=== PATIENT | female | born 1970 | race Two or more races ===

== ENCOUNTER 2024-01-18 08:22 | Inpatient (IN) | payer MEDICAID, SELFPAY ==
--- NOTE | 2024-01-17 10:20 | EKG_ITS ---
[facility] Test Date: 2024-01-17 Pat Name: YUMIKO LOCKWOOD Department: Room: - Gender: Female Analysis Analyst: KARLEE : 1970 Requested By: Porter Gr Order Number: [id number] Reading MD: Porter Gr Measurements Intervals Andrews Rate: 42 P: 38 MS: 134 QRS: 43 QRSD: 86 T: 24 QT: 446 QTc: 377 Interpretive Statements SINUS BRADYCARDIA No previous ECG available for comparison /store/S0/[id number]
[2024-01-17 10:27] VITALS: BMI 38.0
[2024-01-17 11:19] LABS: Basophils % (Auto) 1 % (0-2.5); Eosinophils # (Auto) 0.1 Thou/mm3 (0.0-0.5); Eosinophils % (Auto) 1 % (0-10); Hematocrit 39.8 % (36.0-46.0); Hemoglobin 13.6 g/dL (12.0-16.0); Immature Granulocytes % (Auto) 0 % (0-0); Immature Granulocytes Auto 0.02 Thou/mm3 (0.00-0.00); Lymphocytes # (Auto) 2.1 Thou/mm3 (1.0-4.8); Lymphocytes % (Auto) 38 % (10-50); Mean Corpuscular HGB Conc 34.2 g/dl (31.0-37.0); Mean Corpuscular Hemoglobin 30.4 pg (25.0-35.0); Mean Corpuscular Volume 89 fL (80-100); Monocytes # (Auto) 0.4 Thou/mm3 (0.0-0.8); Monocytes % (Auto) 7 % (0-12); Neutrophils % (Auto) 54 % (37-80); Nucleated Red Blood Cell % 0 /100 WBC (0); Platelet Count 141 Thou/mm3 (140-440); RDW Standard Deviation 42.2 fL (36.4-46.3); Red Blood Count 4.47 Miln/mm3 (4.00-5.20); White Blood Count 5.6 Thou/mm3 (3.6-11.0)
[2024-01-17 11:36] LABS: Partial Thromboplastin Time 25.3 Seconds (22.0-36.0); Prothrombin Time 11.1 Seconds (9.0-12.2)
[2024-01-17 11:37] LABS: Alanine Aminotransferase 43 U/L (10-49); Albumin, Serum 4.7 gm/dL (3.5-5.0); Albumin/Globulin Ratio 1.5 (1.2-2.2); Alkaline Phosphatase 93 U/L (46-116); Anion Gap 7 (7-16); Aspartate Amino Transferase 30 U/L (0-34); BUN/Creatinine Ratio 21 Ratio (12-20); Bilirubin,Total 0.6 mg/dL (0.3-1.2); Blood Urea Nitrogen 15 mg/dL (9-23); Calcium 9.8 mg/dL (8.3-10.6); Calcium (Corrected) 9.8 mg/dL (8.5-10.1); Carbon Dioxide 27.4 mMol/L (20.0-31.0); Chloride 107 mMol/L (98-107); Creatinine (Component) 0.7 mg/dL (0.6-1.3); Estimated Creatinine Clearance 108.3 mL/min (>60); Globulin 3.1 gm/dL (2.3-3.5); Glucose 102 mg/dL (74-106); Osmolality,Calculated 282 (275-295); Potassium 4.1 mMol/L (3.4-5.1); Sodium 141 mMol/L (136-145); Total Protein 7.8 gm/dL (5.7-8.2); eGFR > 60 See Note
[2024-01-17 11:41] LABS: HCG Qualitative,Urine Negative
--- NOTE | 2024-01-17 15:33 | ESHP_ITS ---
RE: YUMIKO LOCKWOOD : 1970 DATE OF ADMISSION: 01/18/2024 HISTORY OF PRESENT ILLNESS: The patient came to my office for detailed preop history and physical examination for right knee pain. The patient has got pain in the right knee joint for more than a few years, but last 1 year is extremely painful. The patient is unable to sleep at night due to pain. The patient feels weakness. The patient graded intensity of pain to be 8-9/10. Activity of daily living and quality of life are affected. The patient wants something to be done about it. PAST MEDICAL HISTORY: No history of diabetes mellitus or high blood pressure. The patient has history of thyroid problem. PAST SURGICAL HISTORY: Right knee arthroscopy in 2021 and in 2010. DRUG HISTORY: The patient is taking thyroid medication. FAMILY HISTORY AND SOCIAL HISTORY: The patient denies smoking or drinking and is not working. PHYSICAL EXAMINATION: GENERAL: Normal built lady. VITAL SIGNS: Pulse is 62 per minute and blood pressure is 126/84. NECK: Soft and supple. No masses felt. Trachea is centrally replaced. CARDIOVASCULAR SYSTEM: First and second heart sound normal. No murmur heard. RESPIRATORY SYSTEM: Bilateral vesicular breath sounds. Chest clear. ABDOMEN: Soft. No masses felt. Bowel sounds present. EXTREMITIES: Right knee examination revealed 1+ swelling and 2+ tenderness. Active range of motion 0-115 degrees of flexion. There is genu varum deformity. The patient walks with limp. DIAGNOSTIC DATA: X-ray of the right knee joint revealed significant osteoarthritic change of the right knee joint. ASSESSMENT AND PLAN: Since patient is symptomatic and her activity of daily living and quality of life are affected, therefore right total knee replacement was discussed and advised. The patient already underwent arthroscopic surgery and at that time, significant osteoarthritic changes were present. Risk with anesthesia was explained and that includes, but not limited to reaction to anesthetic agents, cardiac arrest and rarely it might be fatal. Risk with operation includes infection and if that happens, patient may need further surgical procedure. Other risks include delayed healing, wound dehiscence, etc. No guarantee is given regarding outcome of the procedure and/or relief of symptoms. Sometime rare complication happens and if that happens, that has to be taken care of. The patient was also cleared for surgical procedure by the primary care physician. Accordingly, surgery is booked for 01/18/2024. Appropriate lab work is done. Possibility of blood transfusions was discussed. Risk with blood transfusions was discussed in detail. The patient stated that she take blood when it is absolutely necessary. I agree with that. DT: 12:21:10 TT: 15:32:00 Ref: [id number] - TID: [id number]
--- NOTE | 2024-01-17 16:11 | SUR.PREOP ---
EKG reviewed with Dr Morales.
[2024-01-18] VITALS (14 sets, daily range): BP systolic 120–160; BP diastolic 52–93; PULSE 43–79; RESP 14–18; TEMP 36.1–36.7; O2SAT 97–100; BMI 37.6
[2024-01-18] MEDS: RINGERS LACTATED 500 ML 500 ML 20 ML IV (09:16)
--- NOTE | 2024-01-18 09:46 | CHAP ---
Patient expressed gratitude for prayer before their procedure.
--- NOTE | 2024-01-18 12:52 | SUR.PHASEI ---
1252: received pt from OR via bed. report received from CJ Norris and Dr. Morales. pt sleeping at this time. no s/s of pain or discomfort. no s/s of resp. distress or discomfort. dressing to right knee clean, dry and intact. pedal pulse positive to right foot. cap refill less than 2 seconds.
--- NOTE | 2024-01-18 13:09 | XR_ITS ---
Examination: Knee, right , 3 views Technique: Knee AP, lateral, oblique 3 views Date and time of exam: January 18, 2024 1319 hours INDICATIONS: Postop knee replacement today FINDINGS: Total right knee replacement. Satisfactory alignment No fracture Moderate osteopenia IMPRESSION: Total right knee replacement with satisfactory alignment
--- NOTE | 2024-01-18 13:09 | ESOP_ITS ---
Date of Procedure 01/18/24 Pre Op Diagnosis Severe DJD right knee joint Post Op Diagnosis Same Procedure Right total knee replacement Hema persona implant. Femur size 5 narrow Tibial baseplate size C Polyethylene size 13 mm Patella size 26 mm Findings Patient has significant osteoarthritic changes with valgus deformity. The bone on bone appearance was there. Osteophytes were present as well. The articular cartilage were absent on the lateral side to greater degree as compared to medial side. Patella has significant osteophytes as well. Procedure Description The patient was given a general anesthesia. Femoral nerve block was also given. Once satisfactory anesthesia was achieved a tourniquet was placed on right upper thigh. Intravenous antibiotics was given at the time of anesthesia. The patient was thoroughly prepped and draped. After using Esmarch the tourniquet pressure was raised to 350 mmHg. A skin incision was made 2 inches proximal to the upper pole of patella going as far down as up to the medial aspect of the tibial tuberosity. The skin was raised as a flap on the site. The bleeding vessels were electrocoagulated as and when encountered. The quadriceps tendon, medial border of the patella and the patellar tendon along the medial aspect of the tibial tuberosity was incised and reflected. The patellar tendon was reflected as much as needed to rosmery the patella. The soft tissue from the upper medial border of the tibia was reflected to correct her genu varum deformity. The knee joint was flexed. The anterior cruciate ligament, medial and lateral meniscus were excised. Next para drill hole was made to the inferior surface of the femur. Following that a swab was placed. A 6?? of abduction was already put into it. Following that a cutting block for the inferior cut of the femur was placed and nicely secured with the pins. The swat was removed. The inferior cut of the femur was made and after that the cutting block was removed. Following that a sizer was placed. A decision was made to use size [5] femur implant. 2 drill holes each in 3?? of external rotation were made. The sizer was removed. Size [5] cutting block was placed. Following that anterior, posterior, anterior chamfer and posterior chamfer cuts were made. The cutting block was removed. The knee joint was extended and a 10 mm trial plastic was removed and the intended level of the tibial cut was marked. The knee joint was flexed. With the help of double-pronged the tibia was displaced anteriorly. An extramedullary jig for the cutting block placement of the tibia was placed. The mechanical axis of the zig was parallel to the mechanical axis of the tibia. Following that the tibial cutting block was placed at the desired level and was secured nicely with the help of pins. Following that the tibial cut was made. In this case was posterior cruciate ligament was saved. The cutting block was removed. The spacer was placed and a decision was made to use size [12] polyethylene. The sizing of the tibial baseplate was done and the decision was made to use size [C] tibial baseplate. Following that size [5] trial femur implant was placed in lateralized position and size [C] tibial tibial baseplate along with size [12] plastic was placed in knee joint was flexed and extended quite a few times and tibial baseplate was allowed to sit wherever it wanted to. The markings were made for the tibial baseplate. However the knee was a little bit loose therefore size 13 mm plastic was used knee was very stable 2 drill holes were made for the inferior surface of the femur trial implant. The trial implant was removed and tibial baseplate was placed again with the help of pins. The collar was placed and superior hole was drilled. Following that a fin cut was made. The patella was reamed with [26] mm diameter reamer. [12] mm thickness was left. A collar was placed and 3 drill holes were made. All the trial implant was placed and patellar tracking was checked and found to be good. Lateral release was done at this point. The wound was irrigated with antibiotic solution every 4-5 minutes. Now the power lavage antibiotic solution was used. The knee joint was flexed. The bone were made dry. The cement was mixed. With the help of cement the tibial baseplate was mounted. The excess cement was removed. The femur implant was placed and trial plastic was placed and knee joint was extended. Patella was also mounted with the help of cementing. Excess cement was removed. Osteophytes from the patella was removed at this time. Once the cement was set the tourniquet pressure was released. The bleeding vessels were electrocoagulated. The trial plastic was removed and 13 mm ultra high molecular weight polyethylene was placed. The stability of the knee joint was tested again and found to be extremely stable. Closure The quadriceps tendon, medial border of the patella and patellar tendon was closed with the help of 1-0 Vicryl in an interrupted fashion. The subcutaneous tissue was closed with 2-0 Vicryl in an interrupted fashion. The skin was closed with mirlande. The wound was cleaned with hydrogen proximal solution and a sterile dressing was applied. Patient tolerated procedure very well. Estimated blood loss [50] mL. Prognosis in this case is good. This was taken to the recovery room in good condition. Anesthesia GETA and other Pathology / specimen None Estimated Blood Loss 50 Surgeon Porter Mcdonough MD Surgical Staff Operation Date: 01/18/24 10:15 Case Staff Anesthesiologist: Bipin Morales RNyeast culture developer: Karen Mcmullen
--- NOTE | 2024-01-18 13:14 | SUR.PHASEI ---
1314: pt awake and alert. denies any pain or discomfort. pt able to move toes without any issues.
[2024-01-18] MEDS: fentaNYL CIT INJ 50 mCg/ML AMP 2ML IV ×2 (13:19→13:49)
--- NOTE | 2024-01-18 13:25 | SUR.PHASEI ---
x-ray completed at the bedside at this time.
[2024-01-18] MEDS: HYDROmorphone INJ 2 MG/ML VIAL 0.5 MG IV ×2 (13:33→22:12)
--- NOTE | 2024-01-18 13:43 | SUR.PHASEI ---
able to drink water without any difficulty. at the bedside
--- NOTE | 2024-01-18 14:06 | SUR.PHASEI ---
1406: report given to CJ Clark at this time.
--- NOTE | 2024-01-18 14:06 | SUR.PHASEI ---
report given to Leora at this time
--- NOTE | 2024-01-18 14:20 | SUR.PHASEI ---
1420: pt transferred to med-surg via bed with and [id number] at the bedside. pt alert and oriented to name, place and time. no s/s of resp. distress or discomfort. denies any pain or discomfort at this time. dressing to right knee clean, dry and intact. able to move toes, cap refill less than 2 seconds, positive pedal pulse to right foot.
[2024-01-18] MEDS: ceFAZolin/D5W 1 GM IVPB 1 GM/50 ML BAG IV ×2 (14:34→21:16)
--- NOTE | 2024-01-18 18:57 | PD.ANESPROG ---
Documentation for date of: 01/18/24 ANESTHESIA NOTE: Patient had GETA and R femoral nerve block for R TKA earlier today. She did well intra-op and in PACU. Bipin Morales MD Anesthesia Progress Note Progress Note Most recent Vital Signs: Last Vital Signs Temp 97.0 F 01/18/24 16:37 Pulse 72 01/18/24 16:37 Resp 17 01/18/24 16:37 BP 128/52 L 01/18/24 16:37 Pulse Ox 97 01/18/24 16:37 O2 Flow Rate 2 01/18/24 16:37
[2024-01-19 05:50] LABS: Basophils % (Auto) 0 % (0-2.5); Eosinophils % (Auto) 0 % (0-10); Hematocrit 34.8 % (36.0-46.0); Immature Granulocytes % (Auto) 0 % (0-0); Immature Granulocytes Auto 0.03 Thou/mm3 (0.00-0.00); Lymphocytes % (Auto) 14 % (10-50); Mean Corpuscular HGB Conc 34.5 g/dl (31.0-37.0); Mean Corpuscular Hemoglobin 30.6 pg (25.0-35.0); Mean Corpuscular Volume 89 fL (80-100); Monocytes # (Auto) 0.4 Thou/mm3 (0.0-0.8); Monocytes % (Auto) 6 % (0-12); Neutrophils # (Auto) 5.6 Thou/mm3 (1.8-7.7); Neutrophils % (Auto) 80 % (37-80); Nucleated Red Blood Cell % 0 /100 WBC (0); Platelet Count 144 Thou/mm3 (140-440); RDW Standard Deviation 41.2 fL (36.4-46.3); Red Blood Count 3.92 Miln/mm3 (4.00-5.20)
[2024-01-19 08:00] VITALS: BP 97/73; PULSE 59; RESP 17; TEMP 36.2; O2SAT 98
[2024-01-19] MEDS: HYDROmorphone INJ 2 MG/ML VIAL 0.5 MG IV (09:31)
[2024-01-19] MEDS: LEVOTHYROXINE SODIUM 112 MCG TABLET PO (09:31)
[2024-01-19 11:32] VITALS: PULSE 60; RESP 18; O2SAT 98
[2024-01-19 12:00] VITALS: BP 116/64; PULSE 63; RESP 17; TEMP 36.4; O2SAT 99
--- NOTE | 2024-01-19 12:28 | PC.SS ---
INSEMINATION WORKER went to follow up with pt regarding pt needing walker, but pt stated that she already bought one and did not need one.
[2024-01-19 12:54] VITALS: BMI 11.0
[2024-01-19] MEDS: MORPHINE SULF INJ 10 MG/ML VIAL 4 MG IV ×2 (14:09→19:34)
[2024-01-19 16:00] VITALS: BP 122/60; PULSE 65; RESP 16; TEMP 36.2; O2SAT 97
[2024-01-19 20:00] VITALS: BP 114/62; PULSE 67; RESP 19; TEMP 36.1; O2SAT 95
[2024-01-19] MEDS: KETOROLAC INJ 30 MG/ML VIAL 15 MG IVP (21:59)
[2024-01-20] VITALS: BP 137/65; PULSE 61; RESP 18; TEMP 36.2; O2SAT 96
[2024-01-20 00:38] VITALS: PULSE 74; RESP 20; O2SAT 94
[2024-01-20] MEDS: MORPHINE SULF INJ 10 MG/ML VIAL 4 MG IV ×3 (01:13→14:02)
[2024-01-20 04:00] VITALS: BP 137/64; PULSE 60; RESP 18; TEMP 36.2; O2SAT 95
[2024-01-20 05:29] LABS: Basophils % (Auto) 0 % (0-2.5); Eosinophils % (Auto) 0 % (0-10); Hematocrit 33.4 % (36.0-46.0); Hemoglobin 11.3 g/dL (12.0-16.0); Immature Granulocytes % (Auto) 0 % (0-0); Immature Granulocytes Auto 0.03 Thou/mm3 (0.00-0.00); Lymphocytes # (Auto) 1.9 Thou/mm3 (1.0-4.8); Lymphocytes % (Auto) 24 % (10-50); Mean Corpuscular HGB Conc 33.8 g/dl (31.0-37.0); Mean Corpuscular Hemoglobin 30.1 pg (25.0-35.0); Mean Corpuscular Volume 89 fL (80-100); Monocytes # (Auto) 0.6 Thou/mm3 (0.0-0.8); Monocytes % (Auto) 7 % (0-12); Neutrophils # (Auto) 5.2 Thou/mm3 (1.8-7.7); Neutrophils % (Auto) 68 % (37-80); Nucleated Red Blood Cell % 0 /100 WBC (0); Platelet Count 138 Thou/mm3 (140-440); RDW Standard Deviation 42.8 fL (36.4-46.3); Red Blood Count 3.75 Miln/mm3 (4.00-5.20); White Blood Count 7.6 Thou/mm3 (3.6-11.0)
[2024-01-20] MEDS: KETOROLAC INJ 30 MG/ML VIAL 15 MG IVP ×2 (05:40→11:56)
[2024-01-20] MEDS: LEVOTHYROXINE SODIUM 112 MCG TABLET PO (05:40)
[2024-01-20 08:00] VITALS: BP 129/77; PULSE 89; RESP 18; TEMP 36.1; O2SAT 92
--- NOTE | 2024-01-20 10:46 | CHAP ---
Patient was visited by the Spiritual Care Volunteer who prayed for them. (Volunteer was in the hospital from 09:50-10:46)
[2024-01-20 12:00] VITALS: BP 130/66; PULSE 57; RESP 17; TEMP 36.7; O2SAT 98
--- NOTE | 2024-01-20 18:52 | ESPR_ITS ---
RE: MANDIE YUMIKO : 1970 DATE OF SERVICE: 01/20/2024 The patient is status post right total knee replacement done on 01/18/2024. The patient was seen by me again on 01/19/2024. The patient is afebrile. The patient is walking rather well, but experienced significant pain. There is no clinical evidence of DVT. White cell count is 7.0 and hemoglobin is 12.0 and hematocrit is 34.8. The patient is in too much pain, hence the decision was made to keep her one more night and be mobilized with the physical therapist once again on 01/20/2024. DT: 10:52:15 TT: 18:51:00 Ref: [id number] - TID: [id number]
--- NOTE | 2024-01-20 18:57 | ESPR_ITS ---
RE: JENYYUMIKO Glynn : 1970 DATE OF SERVICE: 01/20/2024 The patient was seen by me again on 01/20/2024. The patient's white blood cell count is 7.6 and hemoglobin is 11.3 and hematocrit is 33.4. Dressing change was done. Wound is looking healthy. There is no clinical evidence of infection and/or DVT. The patient will be mobilized again by physical therapist. By the time of my dictation, physical therapy has not come. However, she is scheduled to come today and be mobilized. Once that happens and the pain is under control, the patient will be discharged home. Discharge instructions is already given in case she is discharged. DT: 10:53:24 TT: 18:55:00 Ref: [id number] - TID: [id number]
== END 2024-01-20 15:40 | disposition home or self-care (01) | DRG 326 ==
LOC: S2W1 08:22 → S3NX 14:25
PROVIDERS: Anesthesiology; Admitting Provider Orthopaedic Surgery; PCP Family Medicine; Visit Provider Orthopaedic Surgery
PROC: 0SRC0J9 Replacement of Right Knee Joint with Synthetic Substitute, Cemented, Open Approach (ICD-10-PCS; principal; 2024-01-18 10:00)
DX: M17.11 Unilateral primary osteoarthritis, right knee (principal); M21.161 Varus deformity, not elsewhere classified, right knee; M25.761 Osteophyte, right knee
CPT/HCPCS: 36415; 73562; 80053; 81025; 85025; 85610; 85730; 86850; 86900; 86901; 86923; 87081; 93005; 97162; A4217; C1713; C1776; J0131; J0689; J0690; J1100; J1580; J1885; J2250; J2270; J2405; J2704; J2795; J3010; J3490; J7120; A9270

== ENCOUNTER 2024-05-08 11:30 | Outpatient (RCR) | payer MEDICAID, SELFPAY ==
--- NOTE | 2024-05-01 08:42 | PTNOTE_ITS ---
PT OP Initial Eval Patient Information Outpatient Physical Therapy Treatment Date: 05/01/24 Visit Reasons: RT knee Joint Medical Diagnosis: Z96.651 Treatment Dx #1: R knee pain Treatment Dx #2: Dec R knee ROM Start of Care: 05/01/24 Date of Onset: 01/18/24 Smoking Status Smoking Status: Never smoker Initial Assessment Subjective: Pt is 53 yr old armenian speaking female s/p R TKA about 3.5 months ago c/o not being able to bend the knee. This is the first time she has attended therapy after the surgery. PMH: thyroidism Pt goal: to bend the knee more Objective: R knee AROM: ? Flexion: 78 deg ? Extension: -7 deg ? SLR: ? 65 deg ? Strength: ? Quads and hamstrings 3+/5 ? Antalgic gait pattern with decreased WB tolerance on R LE Assessment: Pt presentation consistent with post op R TKA with decreased ROM, strength ? and WB tolerance. Pt lacks a few degrees of knee extension and flexion is limited by ? myofascial limitations, scar tissue and pain.? Pt requires skilled therapy to improve ROM ? and strength and has fair rehab potential.? Eval followed by HEP with printout. Short Term and Penitentiary Goals 1. Independent with HEP ? 2. Improved knee flexion ROM to 105 deg and extension to full ? 3. Improved quad and hamstring strength to 4/5 ? 4. Improved ambulatory tolerance to community distances with symmetrical ? gait pattern. Treatment Plan 1. Manual therapy ? 2. Therex ? 3. Modalities as indicated, ice, MHP, TENS Frequency and Duration: 1-2x a week for 12 Rx sessions plus the eval then reassess Certification Dates: 05/01/24 to 08/01/24 Procedure Charges OP PT Eval Mod Complex 30 minutes: Yes
--- NOTE | 2024-05-08 14:04 | PT.ODAYNRPT ---
PT Outpatient Daily Note OP Daily Note Outpatient Physical Therapy Treatment Date: 05/08/24 Visit Reasons: RT knee Joint Subjective: Same as time of evaluation Objective: See F/S for therex MT: PROM into extension and flexion x7' Assessment: Improved PROM into flexion to about 90 deg today Plan: Continue per POC Length of Time (minutes) of Treatment: 30 Minutes Procedure Charges Therapeutic Exercise 30 minutes: Yes
== END 2024-05-12 23:59 | disposition home or self-care (01) ==
LOC: CPTX 11:30
PROVIDERS: PCP Nurse Practitioner; Referring Provider Nurse Practitioner; Visit Provider Nurse Practitioner
DX: M25.561 Pain in right knee (principal); Z96.651 Presence of right artificial knee joint
CPT/HCPCS: 97110; 97162

== ENCOUNTER 2024-06-04 14:00 | Outpatient (RCR) | payer MEDICAID, SELFPAY ==
--- NOTE | 2024-05-13 11:47 | PT.ODAYNRPT ---
PT Outpatient Daily Note OP Daily Note Outpatient Physical Therapy Treatment Date: 05/13/24 Visit Reasons: Right knee joint pain Subjective: Pt reports compliance with HEP. Objective: Please see flow sheet for ther ex list. Assessment: Performed PROm into knee flexion, pt minimal guarded allowing for increase in range. Plan: Continue with pOC. Length of Time (minutes) of Treatment: 30 Minutes Procedure Charges Therapeutic Exercise 30 minutes: Yes
--- NOTE | 2024-05-20 13:57 | PT.ODAYNRPT ---
PT Outpatient Daily Note OP Daily Note Outpatient Physical Therapy Treatment Date: 05/20/24 Visit Reasons: Right knee joint pain Subjective: Pt reports her R knee is doing ok, still can not bend all the way. Objective: Please see flow sheet for ther ex list. Assessment: Performed PROM to R knee, pt tolerated well able to relax more than previous session allowing for increase range. Plan: Continue with POC. Length of Time (minutes) of Treatment: 30 Minutes Procedure Charges Therapeutic Exercise 30 minutes: Yes
--- NOTE | 2024-05-27 17:54 | PT.ODAYNRPT ---
PT Outpatient Daily Note OP Daily Note Outpatient Physical Therapy Treatment Date: 05/27/24 Visit Reasons: Right knee joint pain Subjective: Pain with bending the knee fully back Objective: See F/S for therex MT: PROM into flexion x7' Assessment: Improved PROM into flexion to about 95 deg today Plan: Continue per POC Length of Time (minutes) of Treatment: 30 Minutes Procedure Charges Therapeutic Exercise 30 minutes: Yes
--- NOTE | 2024-06-04 14:40 | PTNOTE_ITS ---
PT Outpatient Daily Note OP Daily Note Outpatient Physical Therapy Treatment Date: 06/04/24 Visit Reasons: Right knee joint pain Subjective: Pt reports R knee is ok, still feels its weak and has pain on the back of the knee. Objective: Please see flow sheet for ther ex list. Assessment: Pt instructed on prone knee flexion and HS stretch exercise, encouraged to pe rform for HEP pt agreed. Plan: Continue with poC. Length of Time (minutes) of Treatment: 30 Minutes Procedure Charges Therapeutic Exercise 30 minutes: Yes
== END 2024-06-11 23:59 | disposition home or self-care (01) ==
LOC: CPTX 14:00
PROVIDERS: PCP Nurse Practitioner; Referring Provider Nurse Practitioner; Visit Provider Nurse Practitioner
DX: M25.561 Pain in right knee (principal); Z96.651 Presence of right artificial knee joint
CPT/HCPCS: 97110

== ENCOUNTER 2024-07-11 15:00 | Outpatient (RCR) | payer MEDICAID, SELFPAY ==
--- NOTE | 2024-06-12 15:15 | PT.ODAYNRPT ---
PT Outpatient Daily Note OP Daily Note Outpatient Physical Therapy Treatment Date: 06/12/24 Visit Reasons: RT knee joint Subjective: Pt reports R knee is doing ok, feels flexibility is improving but slow. Objective: Please see flow sheet for ther ex list. Assessment: Continued focus on restoring ROM and strength. Plan: Continue with pOC. Length of Time (minutes) of Treatment: 30 Minutes Procedure Charges Therapeutic Exercise 30 minutes: Yes
--- NOTE | 2024-06-19 15:12 | PT.ODAYNRPT ---
PT Outpatient Daily Note OP Daily Note Outpatient Physical Therapy Treatment Date: 06/19/24 Visit Reasons: RT knee joint Subjective: Pt mentioned that she notices her knee still demetra, pt has been going out for walks and trying to be more active. Pt content to share that she started driving. Objective: Please see flow sheet for ther ex list. R knee AROM 93 deg. Assessment: Focus on restoring ROM and strength, pt tolerates PROM well. No knee buckling during todays PT session. Plan: Continue with POC. Length of Time (minutes) of Treatment: 30 Minutes Procedure Charges Therapeutic Exercise 30 minutes: Yes
--- NOTE | 2024-06-26 09:55 | PT.ODAYNRPT ---
PT Outpatient Daily Note OP Daily Note Outpatient Physical Therapy Treatment Date: 06/26/24 Visit Reasons: RT knee joint Subjective: Pt reports R knee is doing better notices flexibility is improving. Objective: Please see flow sheet for ther ex list. Assessment: Pt ROM into knee flexion continues to improve. Plan: Continue with pOC. Length of Time (minutes) of Treatment: 30 Minutes Procedure Charges Therapeutic Exercise 30 minutes: Yes
--- NOTE | 2024-07-11 15:24 | PT.ODAYNRPT ---
PT Outpatient Daily Note OP Daily Note Outpatient Physical Therapy Treatment Date: 07/11/24 Visit Reasons: RT knee joint Subjective: Pt reports R knee is feeling a little better, notices she can do PT exercises with more ease. Objective: Please see flow sheet for ther ex list. Assessment: Pt demonstrates decrease c/o pain during interventions indicating progress. Interventions performed withing available ROM, some pain at end range. Plan: Continue with poC. Length of Time (minutes) of Treatment: 30 Minutes Procedure Charges Therapeutic Exercise 30 minutes: Yes
== END 2024-07-12 23:59 | disposition home or self-care (01) ==
LOC: CPTX 15:00
PROVIDERS: PCP Nurse Practitioner; Referring Provider Nurse Practitioner; Visit Provider Nurse Practitioner
DX: M25.561 Pain in right knee (principal); Z96.651 Presence of right artificial knee joint
CPT/HCPCS: 97110

== ENCOUNTER 2024-08-04 15:30 | Outpatient (RCR) | payer MEDICAID, SELFPAY ==
--- NOTE | 2024-07-22 17:43 | PT.ODAYNRPT ---
PT Outpatient Daily Note OP Daily Note Outpatient Physical Therapy Treatment Date: 07/22/24 Visit Reasons: right knee pain Subjective: Less R knee pain and better strength but difficulty with uneven ground Objective: See F/S for therex Assessment: Pt can ascend/descend with reciprocol pattern 4 steps but should use hand railing for safety. Plan: Continue per POC x2 more sessions Length of Time (minutes) of Treatment: 30 Minutes Procedure Charges Therapeutic Exercise 30 minutes: Yes
--- NOTE | 2024-07-24 16:06 | PT.ODAYNRPT ---
PT Outpatient Daily Note OP Daily Note Outpatient Physical Therapy Treatment Date: 07/24/24 Visit Reasons: right knee pain Subjective: Overall better with less knee pain and more strength but she doesn't feel confident on stairs sometimes. Objective: See F/S for therex Assessment: Good strength with squats but she compensates with fwd trunk lean with stairs. Plan: Continue per POC Length of Time (minutes) of Treatment: 30 Minutes Procedure Charges Therapeutic Exercise 30 minutes: Yes
--- NOTE | 2024-08-04 18:02 | PT.ODS1RPT ---
PT OP Progress/Discharge Note Date of Service: 08/04/24 Progress Note/DC Note Progress Note/Discharge Note: DC Note Patient Information Visit Reasons: right knee pain Service Continue Service or Discharge: Discharge Discharge Date: 08/04/24 Status Subjective: Overall better with less knee pain and more strength but she doesn't feel confident on stairs sometimes. Objective: See F/S for therex R knee AROM: PROM: Flexion: 90 deg 100 deg Extension: full full Strength: Quads: 4/5 HS: 4/5 Gait: symmetrical pattern good gait speed Assessment: Pt has attended 12/12 Rx sessions with good progress to meet most goals. Pt has improved knee flexion PROM to 100 deg which is shy of the 105 deg goal but progress has plateaued. She does have improved quad and HS strength to meet the goal of 4/5. She has good strength with squats but she compensates with fwd trunk lean with stairs which should improve with HEP. She met the goal of improved ambulatory tolerance x community with symmetrical pattern. Plan: D/C with HEP Procedure Charges Therapeutic Exercise 30 minutes: Yes
== END 2024-08-11 23:59 | disposition home or self-care (01) ==
LOC: CPTX 15:30
PROVIDERS: PCP Nurse Practitioner; Referring Provider Nurse Practitioner; Visit Provider Nurse Practitioner
DX: M25.561 Pain in right knee (principal); Z96.651 Presence of right artificial knee joint
CPT/HCPCS: 97110